=== PATIENT | female | born 1975 | race American Indian/Alaskan Native ===

== ENCOUNTER 2018-08-07 13:23 | Outpatient (CLI) | payer OTHER | END 2018-08-08 16:25 | disposition home or self-care (01) | LOC: OBS/DEL 13:23 | DX: O60.02 Preterm labor without delivery, second trimester (principal); Z34.02 Encounter for supervision of normal first pregnancy, second trimester ==

== ENCOUNTER 2018-11-08 12:47 | Inpatient (IN) | payer OTHER ==
[~2018-11-08] VITALS: Ht 165.1 cm; Wt 69.4 kg
[2018-11-08] MEDS ORDERED: IRON325 MG PO (14:03)
[2018-11-08] MEDS ORDERED: PRENATAL TABLE1 EAC1 PO (14:03)
[2018-11-08] MEDS ORDERED: HUMALOG100 UNIT/1 SUBCUTANEO (14:07)
== END 2018-11-11 15:42 | DRG 786 ==
LOC: LDR 12:47 → OB/GYN 18:35
PROVIDERS: ADMIT Specialist
PROC: 4A1HXCZ Monitoring of Products of Conception, Cardiac Rate, External Approach (ICD-10-PCS; 2018-11-08)
PROC: 10D00Z1 Extraction of Products of Conception, Low, Open Approach (ICD-10-PCS; principal; 2018-11-08 15:00)
DX: O82 Encounter for cesarean delivery without indication (principal); O60.14X0 Preterm labor third trimester with preterm delivery third trimester, not applicable or unspecified; Z3A.36 36 weeks gestation of pregnancy; Z37.0 Single live birth; Z22.330 Carrier of Group B streptococcus